=== PATIENT | female | born 1965 | race Caucasian/White ===

== ENCOUNTER → 2020-07-23 10:05 | Outpatient (BNVA) | payer BC, SELFPAY | PROVIDERS: Visit Provider Internal Medicine Gastroenterology | DX: Z76.89 Persons encountering health services in other specified circumstances (principal) ==

== ENCOUNTER 2021-01-16 10:50 | Day surgery (SDC) | payer BC, SELFPAY ==
--- NOTE | 2021-01-15 09:02 | P.CONAN_ITS ---
Documented by User: Sloane Merrill 01/15/21 10:04 HPI - Anesthesia Eval Consult details Narrative: 55yo F for Upper Endoscopy and Colonoscopy *multiple med allergies* Plavix for CAD, PVD PMFSH Active Problems Active Problems: All Active Problems (Updated 01/15/21 @ 08:48 by Beryl Tamez) Dysphagia (Acute) LLQ abdominal pain (Acute) Past Medical History Medical History CAD (coronary artery disease) Celiac artery stenosis Diabetes GERD (gastroesophageal reflux disease) Hx of irritable bowel syndrome Mesenteric ischemia Nasopharyngeal cancer Subclavian artery stenosis, left Family History Family History Father No problems noted. Mother No problems noted. Surgical History Surgical History History of colonoscopy History of hysterectomy Hx of cardiac catheterization Hx of endoscopy Hx of tubal ligation Social History Social History Alcohol intake: current Alcohol intake frequency: holidays/special occasions only Alcohol type: beer and wine Advance Directives: No Advance Directives Information Provided: Yes Meds Allergies Allergy/AdvReac Type Severity Reaction Status Date / Time acetaminophen [From PERCOCET] Allergy Unknown UNKNOWN Unverified 04/25/20 19:52 amoxicillin [From AUGMENTIN] Allergy Unknown UNKNOWN Unverified 04/25/20 19:52 atorvastatin [From LIPITOR] Allergy Unknown UNKNOWN Unverified 04/25/20 19:52 cephalexin [CEPHALEXIN] Allergy Unknown UNKNOWN Unverified 04/25/20 19:52 cisapride [From PROPULSID] Allergy Unknown UNKNOWN Unverified 04/25/20 19:52 citalopram [From CELEXA] Allergy Unknown UNKNOWN Unverified 04/25/20 19:52 clavulanic acid Allergy Unknown UNKNOWN Unverified 04/25/20 19:52 [From AUGMENTIN] glimepiride [GLIMEPIRIDE] Allergy Unknown UNKNOWN Unverified 04/25/20 19:52 glipizide [GLIPIZIDE] Allergy Unknown UNKNOWN Unverified 04/25/20 19:52 glyburide [GLYBURIDE] Allergy Unknown UNKNOWN Unverified 04/25/20 19:52 ibuprofen [From MOTRIN] Allergy Unknown UNKNOWN Unverified 04/25/20 19:52 levothyroxine [LEVOTHYROXINE] Allergy Unknown UNKNOWN Unverified 04/25/20 19:52 lorazepam [LORAZEPAM] Allergy Unknown UNKNOWN Unverified 04/25/20 19:52 metformin [METFORMIN] Allergy Unknown UNKNOWN Unverified 04/25/20 19:52 morphine [MORPHINE] Allergy Unknown UNKNOWN Unverified 04/25/20 19:52 oxycodone [From PERCOCET] Allergy Unknown UNKNOWN Unverified 04/25/20 19:52 ranitidine [From ZANTAC] Allergy Unknown UNKNOWN Unverified 04/25/20 19:52 sertraline [From ZOLOFT] Allergy Unknown UNKNOWN Unverified 04/25/20 19:52 sitagliptin [From JANUVIA] Allergy Unknown UNKNOWN Unverified 04/25/20 19:52 augmentin Allergy Unknown Uncoded 03/11/20 00:00 celexa Allergy Unknown Uncoded 03/11/20 00:00 cephalexin Allergy Unknown Uncoded 03/11/20 00:00 glimepiride Allergy Unknown Uncoded 03/11/20 00:00 glipizide Allergy Unknown Uncoded 03/11/20 00:00 glyburide Allergy Unknown Uncoded 03/11/20 00:00 januvia Allergy Unknown Uncoded 03/11/20 00:00 levothyroxine Allergy Unknown Uncoded 03/11/20 00:00 lipitor Allergy Unknown Uncoded 03/11/20 00:00 lorazepam Allergy Unknown Uncoded 03/11/20 00:00 metformin Allergy Unknown Uncoded 03/11/20 00:00 morphine Allergy Unknown Uncoded 03/11/20 00:00 motrin Allergy Unknown Uncoded 03/11/20 00:00 percocet Allergy Unknown Uncoded 03/11/20 00:00 propulsid Allergy Unknown Uncoded 03/11/20 00:00 zantac Allergy Unknown Uncoded 03/11/20 00:00 zoloft Allergy Unknown Uncoded 03/11/20 00:00 Home Medications Medication Instructions Recorded Confirmed Last Taken Type alprazolam 0.125 mg PO QID 01/15/21 01/15/21 Unknown History aspirin [Aspirin Low-Strength] 81 mg PO DAILY 01/15/21 01/15/21 Unknown History atenolol 12.5 mg PO BID 01/15/21 01/15/21 Unknown History clopidogrel 75 mg PO DAILY 01/15/21 01/15/21 Unknown History esomeprazole magnesium 40 mg PO DAILY 01/15/21 01/15/21 Unknown History metformin 1,000 mg PO DAILY 01/15/21 01/15/21 Unknown History nitroglycerin [Nitrostat] 0.4 mg SUBLINGUAL Q5M PRN 01/15/21 01/15/21 Unknown History pravastatin 20 mg PO DAILY 01/15/21 01/15/21 Unknown History Exam Exam Date and Time: January 15, 2021 09 Narrative Narrative: Per 08/2020 vascular note 08/22/20 ER visit showed unremarkable EKG and negative troponin Per 01/2020 Cardiac note Cardiac cath 09/2019 50% left subclavian artery stenosis treated with balloon angioplasty at her previous subclavian artery stent. Left main was normal. Patent OM 3 stent. Assessment and Plan Assessment Anesthesia Assessment: Chart Reviewed Documented by User: Grant Landin MD 01/16/21 11:28 FORMERLY [facility], [facility] Past Medical History Medical History CAD (coronary artery disease) Celiac artery stenosis Diabetes GERD (gastroesophageal reflux disease) Hx of irritable bowel syndrome Mesenteric ischemia Nasopharyngeal cancer Subclavian artery stenosis, left Family History Family History Father No problems noted. Mother No problems noted. Surgical History Surgical History History of colonoscopy History of hysterectomy Hx of cardiac catheterization Hx of endoscopy Hx of tubal ligation Social History Social History Alcohol intake: current Alcohol intake frequency: holidays/special occasions only Alcohol type: beer and wine Advance Directives: No Advance Directives Information Provided: Yes Meds Allergies Allergy/AdvReac Type Severity Reaction Status Date / Time acetaminophen [From PERCOCET] Allergy Unknown UNKNOWN Unverified 04/25/20 19:52 amoxicillin [From AUGMENTIN] Allergy Unknown UNKNOWN Unverified 04/25/20 19:52 atorvastatin [From LIPITOR] Allergy Unknown UNKNOWN Unverified 04/25/20 19:52 cephalexin [CEPHALEXIN] Allergy Unknown UNKNOWN Unverified 04/25/20 19:52 cisapride [From PROPULSID] Allergy Unknown UNKNOWN Unverified 04/25/20 19:52 citalopram [From CELEXA] Allergy Unknown UNKNOWN Unverified 04/25/20 19:52 clavulanic acid Allergy Unknown UNKNOWN Unverified 04/25/20 19:52 [From AUGMENTIN] glimepiride [GLIMEPIRIDE] Allergy Unknown UNKNOWN Unverified 04/25/20 19:52 glipizide [GLIPIZIDE] Allergy Unknown UNKNOWN Unverified 04/25/20 19:52 glyburide [GLYBURIDE] Allergy Unknown UNKNOWN Unverified 04/25/20 19:52 ibuprofen [From MOTRIN] Allergy Unknown UNKNOWN Unverified 04/25/20 19:52 levothyroxine [LEVOTHYROXINE] Allergy Unknown UNKNOWN Unverified 04/25/20 19:52 lorazepam [LORAZEPAM] Allergy Unknown UNKNOWN Unverified 04/25/20 19:52 metformin [METFORMIN] Allergy Unknown UNKNOWN Unverified 04/25/20 19:52 morphine [MORPHINE] Allergy Unknown UNKNOWN Unverified 04/25/20 19:52 oxycodone [From PERCOCET] Allergy Unknown UNKNOWN Unverified 04/25/20 19:52 ranitidine [From ZANTAC] Allergy Unknown UNKNOWN Unverified 04/25/20 19:52 sertraline [From ZOLOFT] Allergy Unknown UNKNOWN Unverified 04/25/20 19:52 sitagliptin [From JANUVIA] Allergy Unknown UNKNOWN Unverified 04/25/20 19:52 augmentin Allergy Unknown Uncoded 03/11/20 00:00 celexa Allergy Unknown Uncoded 03/11/20 00:00 cephalexin Allergy Unknown Uncoded 03/11/20 00:00 glimepiride Allergy Unknown Uncoded 03/11/20 00:00 glipizide Allergy Unknown Uncoded 03/11/20 00:00 glyburide Allergy Unknown Uncoded 03/11/20 00:00 januvia Allergy Unknown Uncoded 03/11/20 00:00 levothyroxine Allergy Unknown Uncoded 03/11/20 00:00 lipitor Allergy Unknown Uncoded 03/11/20 00:00 lorazepam Allergy Unknown Uncoded 03/11/20 00:00 metformin Allergy Unknown Uncoded 03/11/20 00:00 morphine Allergy Unknown Uncoded 03/11/20 00:00 motrin Allergy Unknown Uncoded 03/11/20 00:00 percocet Allergy Unknown Uncoded 03/11/20 00:00 propulsid Allergy Unknown Uncoded 03/11/20 00:00 zantac Allergy Unknown Uncoded 03/11/20 00:00 zoloft Allergy Unknown Uncoded 03/11/20 00:00 Home Medications Medication Instructions Recorded Confirmed Last Taken Type alprazolam 0.125 mg PO QID 01/15/21 01/15/21 Unknown History aspirin [Aspirin Low-Strength] 81 mg PO DAILY 01/15/21 01/15/21 Unknown History atenolol 12.5 mg PO BID 01/15/21 01/15/21 Unknown History clopidogrel 75 mg PO DAILY 01/15/21 01/15/21 Unknown History esomeprazole magnesium 40 mg PO DAILY 01/15/21 01/15/21 Unknown History metformin 1,000 mg PO DAILY 01/15/21 01/15/21 Unknown History nitroglycerin [Nitrostat] 0.4 mg SUBLINGUAL Q5M PRN 01/15/21 01/15/21 Unknown History pravastatin 20 mg PO DAILY 01/15/21 01/15/21 Unknown History Assessment and Plan Assessment Anesthesia Assessment: Anesthesia Plan Discussed and Chart Reviewed Final Anesthetic Review NPO: Yes ASA Class: III Final Preanesthetic Review: Meds/Allgs Chart Reviewed and Consent Obtained/Reviewed Patient Risk: High Procedure Risk: Low Anesthetic Plan Anesthetic Plan: MAC: Disposition: Standard PACU
[2021-01-16 11:12] VITALS: BMI 25.8
[2021-01-16 11:15] VITALS: BP 131/71; PULSE 68; RESP 17; TEMP 37; O2SAT 98; BMI 25.8
--- NOTE | 2021-01-16 13:29 | MHC.SHP ---
Pre-Procedural Eval Section B Chief Complaint: LLQ Abdominal Pain Details of Present Illness: dysphagia and ba swallow with possible gastric ulcer Relevant Family History (Specify if Yes): No Relevant Social History: None Present Medications: see Short Stay Collaborative assessment Medical History: Significant History (CAD (coronary artery disease) Celiac artery stenosis Diabetes GERD (gastroesophageal reflux disease) Hx of irritable bowel syndrome Mesenteric ischemia Nasopharyngeal cancer Subclavian artery stenosis, left) History of Previous Operations: Relevant previous surgery/procedure and date(s) (History of colonoscopy History of hysterectomy Hx of cardiac catheterization Hx of endoscopy Hx of tubal ligation) Allergies: Allergies Allergy/AdvReac Type Severity Reaction Status Date / Time acetaminophen [From PERCOCET] Allergy Unknown UNKNOWN Unverified 04/25/20 19:52 amoxicillin [From AUGMENTIN] Allergy Unknown UNKNOWN Unverified 04/25/20 19:52 atorvastatin [From LIPITOR] Allergy Unknown UNKNOWN Unverified 04/25/20 19:52 cephalexin [CEPHALEXIN] Allergy Unknown UNKNOWN Unverified 04/25/20 19:52 cisapride [From PROPULSID] Allergy Unknown UNKNOWN Unverified 04/25/20 19:52 citalopram [From CELEXA] Allergy Unknown UNKNOWN Unverified 04/25/20 19:52 clavulanic acid Allergy Unknown UNKNOWN Unverified 04/25/20 19:52 [From AUGMENTIN] glimepiride [GLIMEPIRIDE] Allergy Unknown UNKNOWN Unverified 04/25/20 19:52 glipizide [GLIPIZIDE] Allergy Unknown UNKNOWN Unverified 04/25/20 19:52 glyburide [GLYBURIDE] Allergy Unknown UNKNOWN Unverified 04/25/20 19:52 ibuprofen [From MOTRIN] Allergy Unknown UNKNOWN Unverified 04/25/20 19:52 levothyroxine [LEVOTHYROXINE] Allergy Unknown UNKNOWN Unverified 04/25/20 19:52 lorazepam [LORAZEPAM] Allergy Unknown UNKNOWN Unverified 04/25/20 19:52 metformin [METFORMIN] Allergy Unknown UNKNOWN Unverified 04/25/20 19:52 morphine [MORPHINE] Allergy Unknown UNKNOWN Unverified 04/25/20 19:52 oxycodone [From PERCOCET] Allergy Unknown UNKNOWN Unverified 04/25/20 19:52 ranitidine [From ZANTAC] Allergy Unknown UNKNOWN Unverified 04/25/20 19:52 sertraline [From ZOLOFT] Allergy Unknown UNKNOWN Unverified 04/25/20 19:52 sitagliptin [From JANUVIA] Allergy Unknown UNKNOWN Unverified 04/25/20 19:52 augmentin Allergy Unknown Uncoded 03/11/20 00:00 celexa Allergy Unknown Uncoded 03/11/20 00:00 cephalexin Allergy Unknown Uncoded 03/11/20 00:00 glimepiride Allergy Unknown Uncoded 03/11/20 00:00 glipizide Allergy Unknown Uncoded 03/11/20 00:00 glyburide Allergy Unknown Uncoded 03/11/20 00:00 januvia Allergy Unknown Uncoded 03/11/20 00:00 levothyroxine Allergy Unknown Uncoded 03/11/20 00:00 lipitor Allergy Unknown Uncoded 03/11/20 00:00 lorazepam Allergy Unknown Uncoded 03/11/20 00:00 metformin Allergy Unknown Uncoded 03/11/20 00:00 morphine Allergy Unknown Uncoded 03/11/20 00:00 motrin Allergy Unknown Uncoded 03/11/20 00:00 percocet Allergy Unknown Uncoded 03/11/20 00:00 propulsid Allergy Unknown Uncoded 03/11/20 00:00 zantac Allergy Unknown Uncoded 03/11/20 00:00 zoloft Allergy Unknown Uncoded 03/11/20 00:00 Review of Systems Sugical H&P ROS: Negative: Constitution, Cardiovascular, Respiratory, Neurological, Psychiatric, Hem-Onc, Allergic/Immunologic, Gastrointestinal, Genitourinary, Musculoskeletal, Integumentary, Endocrine and Eyes/Ears/Nose/Throat Exam Surgical H&P Exam: Normal: HEENT, Normal: Heart, Normal: Lungs, Normal: Extremities, Normal: Abdomen, Normal: Skin and Normal: Neurological Plan Diagnosis/Plan: Unchanged I have reviewed the history and physical and performed a pertinent physical examination on my patient. No changes have occurred unless specified.
--- NOTE | 2021-01-16 13:32 | P.OP_ITS ---
Operative Note Operative Note Date of Service: 01/16/21 Narrative: Operative Information Procedure Description: EGD, Colonoscopy FLEXIBLE TRANSORAL UPPER GASTROINTESTINAL ENDOSCOPY AND COLONOSCOPY PROCEDURE NOTE UPPER ENDOSCOPY Consent: Indications for the procedure and potential complications of bleeding, perforation, reaction to medications and missed diagnosis were discussed with the patient and informed consent was obtained. Instrument: Olympus GIF H 190 J mid size upper endoscope Monitoring: Vital signs and clinical assessment, continuous EKG monitoring, Pulse oximetry, Carbon Dioxide monitoring and blood pressure monitoring were done throughout the procedure. Procedure: The patient was placed in the left lateral decubitis position and pre-procedure medications were administered and a bite block was placed. The endoscope was inserted into the mouth and advanced under direct vision to the third part of duodenum. A careful inspection was made as the upper endoscope was withdrawn including a retroflexed examination of the proximal stomach; Findings and interventions are described below. Findings: Larynx:normal Esophagus: GE junction at 38 cm, diaphragm hiatus at 40 cm, consistent with 2 cm sliding hiatal hernia, possible short segment barretts noted and bx taekn from GEJ and distal, mid/proximal esophagus in different jars. Balloon dilation done at UES and LES to 19 mm, no tears seen but resistance felt by environmental monitoring technician Stomach: Normal mucosa with scattered fundic gland polyps. Biopsies were obtained of some of the polyps and the normal gastric tissue. Grade 2 flap valve on retroflexed examination of the cardia. Duodenum: Normal bulb and descending duodenum, bx taken Intervention: Biopsies as noted above COLONOSCOPY Instrument: Olympus variable stiffness pediatric scope 190L Colonoscopy Monitoring: Vital signs and clinical assessment, continuous EKG monitoring, Pulse oximetry, Carbon Dioxide monitoring and blood pressure monitoring were done throughout the procedure. Colon withdrawal time was 12 minutes. Procedure: The patient was placed in the left lateral decubitis position and pre-procedure medications were administered. After a digital rectal examination of the ano-rectum, the video colonoscope was inserted into the rectum and advanced through the colon to the cecum/TI. The colonoscope was slowly withdrawn in a retrograde panoramic fashion and the colon mucosa was carefully examined including a retroflexed view of the rectum. Findings and interventions are described below. Procedure Difficulty:moderate due to multiple areas of tight colon concha left side Findings: Terminal [id number] bx taken Random colon bx taken Cecum:normal Ascending Colon: normal Transverse Colon -normal Descending Colon:normal Sigmoid Colon: normal Rectum: Retroflexion with moderate sized internal hemorrhoids, grade II Anorectum - normal Colon preparation: [place] Bowel Preparation Scale Right colon; 3 Transverse colon: 3 Left colon; 3 (0 = Unprepared colon segment with mucosa not seen due to solid stool that cannot be cleared. 1 = Portion of mucosa of the colon segment seen, but other areas of the colon segment not well seen due to staining, residual stool and/or opaque liquid. 2 = Minor amount of residual staining, small fragments of stool and/or opaque liquid, but mucosa of colon segment seen well. 3 = Entire mucosa of colon segment seen well with no residual staining, small fragments of stool or opaque liquid) Impression and Post Procedure Diagnosis: Endoscopy Findings: small hiatal hernia fundic gland polyps possible barretts esophagus Colonoscopy Findings: internal hemorrhoids Plan: Await Pathology results Repeat Colonoscopy in 10 years or earlier if clinically indicated High fiber diet leaflet avoid straining at stool, epsom salts and sitz bath, anusol supps or cream if dysphagia continues then manometry testing Above findings were reviewed with the patient and relevant handouts were provided if indicated.
--- NOTE | 2021-01-16 13:32 | PM.OP ---
Brief Operative Note Date of Service: 01/16/21 Pre-op diagnosis: dysphagia, LLq pain Post-op diagnosis: same Procedure: see op note Surgeon: Harish Smith MD Anesthesia: MAC Was an Nutritional Services Cook used for this Procedure?: No Estimated blood loss (mL): 0 Condition: stable Disposition: PACU
[2021-01-16 13:45] LABS: Glucose, Whole Blood 168 mg/dL (60-115)
[2021-01-16 14:43] VITALS: BP 103/58; PULSE 65; RESP 16; TEMP 36.1; O2SAT 100
[2021-01-16 14:57] VITALS: BP 118/60; PULSE 61; RESP 18; TEMP 36.1; O2SAT 100
== END 2021-01-16 15:40 | disposition home or self-care (01) ==
PROVIDERS: PCP Internal Medicine; Visit Provider Internal Medicine Gastroenterology
PROC: (CPT 45380; principal; 2021-01-16 12:10)
DX: R10.32 Left lower quadrant pain (principal); K64.1 Second degree hemorrhoids; K58.9 Irritable bowel syndrome, unspecified; R13.14 Dysphagia, pharyngoesophageal phase; K21.9 Gastro-esophageal reflux disease without esophagitis; K31.7 Polyp of stomach and duodenum; K44.9 Diaphragmatic hernia without obstruction or gangrene; K55.059 Acute (reversible) ischemia of intestine, part and extent unspecified; I25.10 Atherosclerotic heart disease of native coronary artery without angina pectoris; Z98.61 Coronary angioplasty status; E11.9 Type 2 diabetes mellitus without complications; Z79.82 Long term (current) use of aspirin; Z79.84 Long term (current) use of oral hypoglycemic drugs; Z79.899 Other long term (current) drug therapy; Z88.8 Allergy status to other drugs, medicaments and biological substances
CPT/HCPCS: 45380; 43249; 43239; 82947; 88305; 88342; C1726; J2405

== ENCOUNTER → 2021-02-04 14:23 | Outpatient (BNVA) | payer BC, SELFPAY | PROVIDERS: PCP Internal Medicine; Visit Provider Internal Medicine Gastroenterology ==

== ENCOUNTER → 2021-05-20 14:07 | Outpatient (BNVA) | payer BC, SELFPAY | PROVIDERS: PCP Internal Medicine; Visit Provider Internal Medicine Gastroenterology ==

== ENCOUNTER 2022-07-07 09:14 | Day surgery (SDC) | payer BC, SELFPAY ==
--- NOTE | 2022-07-06 10:44 | HO.ANESPROP2 ---
Documented by User: Sloane Merrill NP 07/06/22 10:52 HPI - Anesthesia Eval Consult details Narrative: (Cx'd 05/2022 for Covid +) 56yo F for Upper Endoscopy s/p CABG x 3 10/2021, continues with exertional symptoms and sent for cardiac cath 04/2022 negative for coronary etiology (cardiology wants EGD for investigation r/t anemia) *Multiple Med Allergies* PMFSH Active Problems Active Problems: All Active Problems (Updated 01/15/21 @ 09:12 by Sloane Merrill NP) Dysphagia (Acute) LLQ abdominal pain (Acute) Past Medical History Medical History CAD (coronary artery disease) Celiac artery stenosis Diabetes GERD (gastroesophageal reflux disease) Hx of irritable bowel syndrome Mesenteric ischemia Nasopharyngeal cancer Presence of stent in left circumflex coronary artery Subclavian artery stenosis, left Family History Family History Father No problems noted. Mother No problems noted. Surgical History Surgical History H/O esophagogastroduodenoscopy History of colonoscopy History of hysterectomy History of open heart surgery Hx of cardiac catheterization Hx of endoscopy Hx of tubal ligation Social History Social History Alcohol intake: current Alcohol intake frequency: holidays/special occasions only Alcohol type: beer and wine Patient Tobacco Use Status: Never used Tobacco Use of substances other than those prescribed or required for medical reasons: No Are you DNR?: No Advance Directives: No Advance Directives Information Provided: Yes Meds Allergies Allergy/AdvReac Type Severity Reaction Status Date / Time sulfamethoxazole Allergy Mild unknown Verified 03/02/22 09:27 [From Bactrim] trimethoprim [From Bactrim] Allergy Mild unknown Verified 03/02/22 09:27 acetaminophen [From PERCOCET] Allergy Unknown UNKNOWN Verified 03/02/22 09:27 amoxicillin [From AUGMENTIN] Allergy Unknown UNKNOWN Verified 03/02/22 09:27 atorvastatin [From LIPITOR] Allergy Unknown UNKNOWN Verified 03/02/22 09:27 cephalexin [CEPHALEXIN] Allergy Unknown UNKNOWN Verified 03/02/22 09:27 cisapride [From PROPULSID] Allergy Unknown UNKNOWN Verified 03/02/22 09:27 citalopram [From CELEXA] Allergy Unknown UNKNOWN Verified 03/02/22 09:27 clavulanic acid Allergy Unknown UNKNOWN Verified 03/02/22 09:27 [From AUGMENTIN] glimepiride [GLIMEPIRIDE] Allergy Unknown UNKNOWN Verified 03/02/22 09:27 glipizide [GLIPIZIDE] Allergy Unknown UNKNOWN Verified 03/02/22 09:27 glyburide [GLYBURIDE] Allergy Unknown UNKNOWN Verified 03/02/22 09:27 ibuprofen [From MOTRIN] Allergy Unknown UNKNOWN Verified 03/02/22 09:27 levothyroxine [LEVOTHYROXINE] Allergy Unknown UNKNOWN Verified 03/02/22 09:27 lorazepam [LORAZEPAM] Allergy Unknown UNKNOWN Verified 03/02/22 09:27 metformin [METFORMIN] Allergy Unknown UNKNOWN Verified 03/02/22 09:27 morphine [MORPHINE] Allergy Unknown UNKNOWN Verified 03/02/22 09:27 oxycodone [From PERCOCET] Allergy Unknown UNKNOWN Verified 03/02/22 09:27 ranitidine [From ZANTAC] Allergy Unknown UNKNOWN Verified 03/02/22 09:27 sertraline [From ZOLOFT] Allergy Unknown UNKNOWN Verified 03/02/22 09:27 sitagliptin [From JANUVIA] Allergy Unknown UNKNOWN Verified 03/02/22 09:27 pantoprazole [From Protonix] Allergy Joint Pain Verified 07/07/22 09:37 Home Medications Medication Instructions Recorded Confirmed Last Taken Type alprazolam 0.25 mg tablet 0.125 mg PO QID 01/15/21 01/15/21 Unknown History aspirin 81 mg tablet,delayed 81 mg PO DAILY 01/15/21 01/15/21 Unknown History release atenolol 25 mg tablet 12.5 mg PO DAILY 01/15/21 01/15/21 Unknown History nitroglycerin 0.4 mg sublingual 0.4 mg sublingual Q5M PRN Chest 01/15/21 01/15/21 Unknown History tablet (Nitrostat) Pain estradiol 0.075 mg/24 hr 1 patch topical 2XW 02/04/21 Unknown History semiweekly transdermal patch pravastatin 80 mg tablet 80 mg PO DAILY 02/04/21 Unknown History metformin 500 mg tablet,extended 1,000 mg PO BID 03/02/22 Unknown History release 24 hr Exam Exam Date and Time: July 06, 2022 1044 Pertinent Lab Results Pertinent Lab Results: 04/2022 WBC 4.7 Hgb 9.8 (L) Hct (31.7 (L) PLT 289 Na 141 K 4.3 Cl 102 CO2 27 BUN 11 Creat 0.8 Narrative Narrative: EKG 04/2022 SB @ 59 Otherwise normal Cardiac cath 04/2022 (full report on chart) Secondary risk factor modificatioin according to best available evidence Cont asa 81mg Continue to maximize medical therapy Investigate other etiologies of her exertional symptoms ECHO 10/2021 1. LV poorly visualized. Size is nml. Wall thickness is nml. Systolic function is nml. LVEF 60-65%. No obvious WMA. Nml diastolic function 2. RV poorly visualized 3. Mild MAC. Trace mitral regurg 4. Aortic valve sclerosis without significan stenosis 5. Mild tricuspid valve regurg 6. PASP wnl Assessment and Plan Assessment Anesthesia Assessment: Chart Reviewed Documented by User: Jonathan Posadas MD 07/07/22 10:11 PMFSH Past Medical History Medical History CAD (coronary artery disease) Celiac artery stenosis Diabetes GERD (gastroesophageal reflux disease) Hx of irritable bowel syndrome Mesenteric ischemia Nasopharyngeal cancer Presence of stent in left circumflex coronary artery Subclavian artery stenosis, left Family History Family History Father No problems noted. Mother No problems noted. Family history of problems with anesthesia: No Surgical History Surgical History H/O esophagogastroduodenoscopy History of colonoscopy History of hysterectomy History of open heart surgery Hx of cardiac catheterization Hx of endoscopy Hx of tubal ligation History of Problems with Anesthesia: No Social History Social History Alcohol intake: current Alcohol intake frequency: holidays/special occasions only Alcohol type: beer and wine Patient Tobacco Use Status: Never used Tobacco Use of substances other than those prescribed or required for medical reasons: No Are you DNR?: No Advance Directives: No Advance Directives Information Provided: Yes Meds Allergies Allergy/AdvReac Type Severity Reaction Status Date / Time sulfamethoxazole Allergy Mild unknown Verified 03/02/22 09:27 [From Bactrim] trimethoprim [From Bactrim] Allergy Mild unknown Verified 03/02/22 09:27 acetaminophen [From PERCOCET] Allergy Unknown UNKNOWN Verified 03/02/22 09:27 amoxicillin [From AUGMENTIN] Allergy Unknown UNKNOWN Verified 03/02/22 09:27 atorvastatin [From LIPITOR] Allergy Unknown UNKNOWN Verified 03/02/22 09:27 cephalexin [CEPHALEXIN] Allergy Unknown UNKNOWN Verified 03/02/22 09:27 cisapride [From PROPULSID] Allergy Unknown UNKNOWN Verified 03/02/22 09:27 citalopram [From CELEXA] Allergy Unknown UNKNOWN Verified 03/02/22 09:27 clavulanic acid Allergy Unknown UNKNOWN Verified 03/02/22 09:27 [From AUGMENTIN] glimepiride [GLIMEPIRIDE] Allergy Unknown UNKNOWN Verified 03/02/22 09:27 glipizide [GLIPIZIDE] Allergy Unknown UNKNOWN Verified 03/02/22 09:27 glyburide [GLYBURIDE] Allergy Unknown UNKNOWN Verified 03/02/22 09:27 ibuprofen [From MOTRIN] Allergy Unknown UNKNOWN Verified 03/02/22 09:27 levothyroxine [LEVOTHYROXINE] Allergy Unknown UNKNOWN Verified 03/02/22 09:27 lorazepam [LORAZEPAM] Allergy Unknown UNKNOWN Verified 03/02/22 09:27 metformin [METFORMIN] Allergy Unknown UNKNOWN Verified 03/02/22 09:27 morphine [MORPHINE] Allergy Unknown UNKNOWN Verified 03/02/22 09:27 oxycodone [From PERCOCET] Allergy Unknown UNKNOWN Verified 03/02/22 09:27 ranitidine [From ZANTAC] Allergy Unknown UNKNOWN Verified 03/02/22 09:27 sertraline [From ZOLOFT] Allergy Unknown UNKNOWN Verified 03/02/22 09:27 sitagliptin [From JANUVIA] Allergy Unknown UNKNOWN Verified 03/02/22 09:27 pantoprazole [From Protonix] Allergy Joint Pain Verified 07/07/22 09:37 Home Medications Medication Instructions Recorded Confirmed Last Taken Type alprazolam 0.25 mg tablet 0.125 mg PO QID 01/15/21 01/15/21 Unknown History aspirin 81 mg tablet,delayed 81 mg PO DAILY 01/15/21 01/15/21 Unknown History release atenolol 25 mg tablet 12.5 mg PO DAILY 01/15/21 01/15/21 Unknown History nitroglycerin 0.4 mg sublingual 0.4 mg sublingual Q5M PRN Chest 01/15/21 01/15/21 Unknown History tablet (Nitrostat) Pain estradiol 0.075 mg/24 hr 1 patch topical 2XW 02/04/21 Unknown History semiweekly transdermal patch pravastatin 80 mg tablet 80 mg PO DAILY 02/04/21 Unknown History metformin 500 mg tablet,extended 1,000 mg PO BID 03/02/22 Unknown History release 24 hr Exam Airway Mallampati Class: II TM Dist: >3cm Neck ROM: Full Heart: rrr Lungs: clear Assessment and Plan Final Anesthetic Review Family History of Problems with Anesthesia: No History of Problems with Anesthesia: No NPO: Yes ASA Class: III Final Preanesthetic Review: No Changes in Pt Med Stat, Meds/Allgs Chart Reviewed, Consent Obtained/Reviewed and Anes Risks/Benef Reviewed Patient Risk: Intermediate Procedure Risk: Low Anesthetic Plan Anesthetic Plan: MAC: Disposition: Standard PACU
[2022-07-07 09:43] VITALS: BP 126/68; PULSE 71; RESP 16; TEMP 36.8; O2SAT 98; BMI 27.0
[2022-07-07 09:48] VITALS: BMI 27.0
--- NOTE | 2022-07-07 10:08 | P.HPSUR_ITS ---
Pre-Procedural Eval Section A Date of Service: 07/07/22 Section B Chief Complaint: anemia Relevant Family History (Specify if Yes): No Relevant Social History: None Present Medications: see Short Stay Collaborative assessment Medical History: Significant History (CAD (coronary artery disease) Celiac artery stenosis Diabetes GERD (gastroesophageal reflux disease) Hx of irritable bowel syndrome Mesenteric ischemia Nasopharyngeal cancer Subclavian artery stenosis, left) History of Previous Operations: Relevant previous surgery/procedure and date(s) (H/O esophagogastroduodenoscopy History of colonoscopy History of hysterectomy History of open heart surgery Hx of cardiac catheterization Hx of endoscopy Hx of tubal ligation) Allergies: Allergies Allergy/AdvReac Type Severity Reaction Status Date / Time sulfamethoxazole Allergy Mild unknown Verified 03/02/22 09:27 [From Bactrim] trimethoprim [From Bactrim] Allergy Mild unknown Verified 03/02/22 09:27 acetaminophen [From PERCOCET] Allergy Unknown UNKNOWN Verified 03/02/22 09:27 amoxicillin [From AUGMENTIN] Allergy Unknown UNKNOWN Verified 03/02/22 09:27 atorvastatin [From LIPITOR] Allergy Unknown UNKNOWN Verified 03/02/22 09:27 cephalexin [CEPHALEXIN] Allergy Unknown UNKNOWN Verified 03/02/22 09:27 cisapride [From PROPULSID] Allergy Unknown UNKNOWN Verified 03/02/22 09:27 citalopram [From CELEXA] Allergy Unknown UNKNOWN Verified 03/02/22 09:27 clavulanic acid Allergy Unknown UNKNOWN Verified 03/02/22 09:27 [From AUGMENTIN] glimepiride [GLIMEPIRIDE] Allergy Unknown UNKNOWN Verified 03/02/22 09:27 glipizide [GLIPIZIDE] Allergy Unknown UNKNOWN Verified 03/02/22 09:27 glyburide [GLYBURIDE] Allergy Unknown UNKNOWN Verified 03/02/22 09:27 ibuprofen [From MOTRIN] Allergy Unknown UNKNOWN Verified 03/02/22 09:27 levothyroxine [LEVOTHYROXINE] Allergy Unknown UNKNOWN Verified 03/02/22 09:27 lorazepam [LORAZEPAM] Allergy Unknown UNKNOWN Verified 03/02/22 09:27 metformin [METFORMIN] Allergy Unknown UNKNOWN Verified 03/02/22 09:27 morphine [MORPHINE] Allergy Unknown UNKNOWN Verified 03/02/22 09:27 oxycodone [From PERCOCET] Allergy Unknown UNKNOWN Verified 03/02/22 09:27 ranitidine [From ZANTAC] Allergy Unknown UNKNOWN Verified 03/02/22 09:27 sertraline [From ZOLOFT] Allergy Unknown UNKNOWN Verified 03/02/22 09:27 sitagliptin [From JANUVIA] Allergy Unknown UNKNOWN Verified 03/02/22 09:27 pantoprazole [From Protonix] Allergy Joint Pain Verified 07/07/22 09:37 Review of Systems Sugical H&P ROS: Negative: Constitution, Cardiovascular, Respiratory, Neurological, Psychiatric, Hem-Onc, Allergic/Immunologic, Gastrointestinal, Genitourinary, Musculoskeletal, Integumentary, Endocrine and Eyes/Ears/Nose/Throat Exam Surgical H&P Exam: Normal: HEENT, Normal: Heart, Normal: Lungs, Normal: Extr emities, Normal: Abdomen, Normal: Skin and Normal: Neurological Plan Diagnosis/Plan: Unchanged I have reviewed the history and physical and performed a pertinent physical examination on my patient. No changes have occurred unless specified. EGD and colonoscopy for anemia work up
--- NOTE | 2022-07-07 10:10 | W.PM.OPN ---
Operative Note Operative Note Date of Service: 07/07/22 Narrative: Operative Information Procedure Description: EGD, Colonoscopy Indication: anemia Anesthesia: MAC FLEXIBLE TRANSORAL UPPER GASTROINTESTINAL ENDOSCOPY AND COLONOSCOPY PROCEDURE NOTE UPPER ENDOSCOPY Consent: Indications for the procedure and potential complications of bleeding, perforation, reaction to medications and missed diagnosis were discussed with the patient and informed consent was obtained. Instrument: Olympus GIF H 190 J mid size upper endoscope Monitoring: Vital signs and clinical assessment, continuous EKG monitoring, Pulse oximetry, Carbon Dioxide monitoring and blood pressure monitoring were done throughout the procedure. Procedure: The patient was placed in the left lateral decubitis position and pre-procedure medications were administered and a bite block was placed. The endoscope was inserted into the mouth and advanced under direct vision to the third part of duodenum. A careful inspection was made as the upper endoscope was withdrawn including a retroflexed examination of the proximal stomach; Findings and interventions are described below. Findings: Larynx:normal Esophagus: GE junction at 40 cm, diaphragm hiatus at 40 cm, slight bogginess of GEJ, bx taken, random esophagus bx taken as well Stomach: Patchy erythema and several benign appearing polyps noted with some erythema, bx taken. Grade 2 flap valve on retroflexed examination of the cardia. some patchy gastric pallor also noted Duodenum: Normal bulb and descending duodenum, bx taken Intervention: Biopsies as noted above COLONOSCOPY Instrument: Olympus variable stiffness pediatric scope 190L Colonoscopy Monitoring: Vital signs and clinical assessment, continuous EKG monitoring, Pulse oximetry, Carbon Dioxide monitoring and blood pressure monitoring were done throughout the procedure. Colon withdrawal time was 8 minutes. Procedure: The patient was placed in the left lateral decubitis position and pre-procedure medications were administered. After a digital rectal examination of the ano-rectum, the video colonoscope was inserted into the rectum and advanced through the colon to the cecum/TI. The colonoscope was slowly withdrawn in a retrograde panoramic fashion and the colon mucosa was carefully examined including a retroflexed view of the rectum. Findings and interventions are described below. Procedure Difficulty: easy Findings: Terminal Ileum-normal Cecum:normal Ascending Colon: normal Transverse Colon -normal Descending Colon:normal Sigmoid Colon: normal Rectum: Retroflexion with large internal hemorrhoids, grade I Anorectum - normal Colon preparation: [place] Bowel Preparation Scale Right colon; 2 Transverse colon: 2 Left colon; 2 (0 = Unprepared colon segment with mucosa not seen due to solid stool that cannot be cleared. 1 = Portion of mucosa of the colon segment seen, but other areas of the colon segment not well seen due to staining, residual stool and/or opaque liquid. 2 = Minor amount of residual staining, small fragments of stool and/or opaque liquid, but mucosa of colon segment seen well. 3 = Entire mucosa of colon segment seen well with no residual staining, small fragments of stool or opaque liquid) Impression and Post Procedure Diagnosis: Endoscopy Findings: gastric polyps mild gastritis and ischemia mild esophagitis Colonoscopy Findings: internal hemorrhoids Plan: Await Pathology results Repeat Colonoscopy in 10 years or earlier if clinically indicated High fiber diet leaflet avoid straining at stool, epsom salts and sitz bath, anusol supps or cream anemia could be from hemorrhoids, but should do capsule for completeness ischemia and pallor maybe from known celiac art stenosis. Above findings were reviewed with the patient and relevant handouts were provided if indicated.
[2022-07-07] MEDS: Lactated Ringers 1,000 ML 100 ML IVCONT (10:14)
[2022-07-07 10:25] LABS: Glucose, Whole Blood 261 mg/dL (60-115)
[2022-07-07 11:10] VITALS: BP 95/48; PULSE 59; RESP 18; TEMP 36.3; O2SAT 97
[2022-07-07 11:25] VITALS: BP 103/52; PULSE 56; RESP 16; TEMP 36.4; O2SAT 98
== END 2022-07-07 12:06 | disposition home or self-care (01) ==
PROVIDERS: PCP Internal Medicine; Visit Provider Internal Medicine Gastroenterology
PROC: (CPT 45378; principal; 2022-07-07 10:50)
DX: D64.9 Anemia, unspecified (principal); K31.7 Polyp of stomach and duodenum; K29.70 Gastritis, unspecified, without bleeding; K20.90 Esophagitis, unspecified without bleeding; I99.8 Other disorder of circulatory system; K64.0 First degree hemorrhoids; E11.9 Type 2 diabetes mellitus without complications; I25.10 Atherosclerotic heart disease of native coronary artery without angina pectoris; Z79.84 Long term (current) use of oral hypoglycemic drugs; Z79.899 Other long term (current) drug therapy; Z88.2 Allergy status to sulfonamides; Z88.5 Allergy status to narcotic agent; Z88.8 Allergy status to other drugs, medicaments and biological substances
CPT/HCPCS: 45378; 43239; 82947; 88305; 88342